=== PATIENT | female | born 1980 | race Hispanic/Latino ===

== ENCOUNTER 2025-03-03 18:53 | Emergency (ER) | payer SELFPAY ==
[~2025-03-03] VITALS: Ht 154.9 cm; Wt 82.6 kg
[2025-03-03 19:17] LABS: BASOPHILS # (AUTO) 0.05 K/uL (0.00-0.20); BASOPHILS % (AUTO) 0.7 % (0.0-5.0); EOSINOPHILS # (AUTO) 0.18 K/uL (0.00-0.70); EOSINOPHILS % (AUTO) 2.5 % (0.0-8.0); HEMATOCRIT 31.9 % (36-48); IMMATURE GRANULOCYTE ABSOLUTE 0.02 K/uL (0-1); LYMPHOCYTES # (AUTO) 1.6 K/uL (1.0-4.8); LYMPHOCYTES % (AUTO) 22.4 % (21.0-51.0); MEAN CORPUSCULAR HEMOGLOBIN 19.3 pg (27.0-33.0); MEAN CORPUSCULAR HGB CONC 29.2 g/dL (32.0-36.0); MONOCYTES # (AUTO) 0.5 K/uL (0.1-1.0); MONOCYTES % (AUTO) 7.2 % (3.0-13.0); NEUTROPHILS # (AUTO) 4.8 K/uL (1.8-7.7); NEUTROPHILS % (AUTO) 66.9 % (40.0-77.0); PLATELET COUNT (AUTO) 410 K/uL (130-400); RED BLOOD CELL COUNT(AUTO) 4.83 MIL/uL (4.00-5.50); RED CELL DISTRIBUTION WIDTH 18.3 % (11.0-15.5); WHITE BLOOD COUNT (AUTO) 7.1 K/uL (4.8-10.8)
[2025-03-03 19:38] LABS: CREATININE 0.8 mg/dL (0.5-1.0); POTASSIUM 3.5 mmol/L (3.5-5.1)
[2025-03-03 19:42] LABS: ALBUMIN 3.8 g/dL (3.5-5.0); BILIRUBIN,DIRECT 0.1 mg/dL (0.0-0.3); BILIRUBIN,TOTAL 0.5 mg/dL (0.2-1.0); TOTAL PROTEIN, SERUM 7.3 g/dL (6.0-8.3)
--- NOTE | 2025-03-03 19:50 | ERN ---
ED Note History of Present Illness Stated Complaint: ABD PAIN Chief Complaint: Abdominal Pain Time Seen by MD: 18:55 Time Seen by Midlevel: 18:59 Dictation: 44-year-old female coming in with complaints of diarrhea, nausea and epigastric pain for the last couple of days. Patient states her sister were diagnosed with H pylori and wants to have the exam done. Patient denies having any medical history. Surgical history of cholecystectomy. LMP is 02/02/25 Allergies: Coded Allergies: No Known Drug Allergies (Unverified Allergy, Unknown, 03/03/25) Past Medical History Past Medical History: No Pertinent History Surgical History: None Review of System Dictation Constitutional: Negative for fever,chills, and weight loss Eyes: Negative for injury, pain,redness, and discharge ENT: Negative for injury,pain or swelling Cardiovascular: Negative for chest pain, palpitations, and edema Respiratory: Negative for shortness of breath, cough, and wheezing, Abdomen/GI: Complaining of epigastric pain, nausea, vomiting and diarrhea, nonbloody Back: Negative for injury and pain : Negative for injury, bleeding and discharge MS/Extremity: Negative for injury and deformity Skin: Negative for rash, and discoloration Neuro: Negative for headache, weakness, numbness, tingling, and seizure Psych: Negative for suicide ideation, homicidal ideation, and hallucinations Review of Systems: was completed Initial Vital Sign VS Vital Signs Date Time Temp Pulse Resp B/P (MAP) Pulse Ox O2 Delivery O2 Flow Rate FiO2 03/03/25 18:55 98.1 89 18 184/117 98 Physical Exam Dictation General: awake, alert, NAD Head/Face: Normocephalic, atraumatic Eyes: PERRL, EOMI, vision at baseline ENT: oral cavity clear, TMs clear, no signs of infection Neck: Trachea midline, supple, no nuchal rigidity Cardiovascular: RRR, normal S1/S2, No MRGs, no JVD Respiratory: CTAB, no respiratory distress, No rales or wheezes Abdomen: Soft, non-tender, non-distended, normal bowel sounds, no guarding or rebound. Skin: Warm, dry, normal turgor, no rash MS/Extremity: Pulses equal, no cyanosis, neurovascular intact, FROM Neuro: COAx4, GCS 15, strength 5/5, CN 2-12 intact, normal cerebellar exam, normal gait, Psych: Normal behavior, mood, and affect normal Results (Laboratory/Radiology) Laboratory/Radiology Laboratory Tests Test 03/03/25 19:06 White Blood Count 7.1 K/uL (4.8-10.8) Red Blood Count 4.83 MIL/uL (4.00-5.50) Hemoglobin 9.3 g/dL (12.0-16.0) L Hematocrit 31.9 % (36-48) L Mean Corpuscular Volume 66.0 fL (79-99) L Mean Corpuscular Hemoglobin 19.3 pg (27.0-33.0) L Mean Corpuscular Hemoglobin Concent 29.2 g/dL (32.0-36.0) L Red Cell Distribution Width 18.3 % (11.0-15.5) H Platelet Count 410 K/uL (130-400) H Mean Platelet Volume 10.5 fL (7.5-10.5) Immature Granulocyte % (Auto) 0.3 % (0-1) Neutrophils (%) (Auto) 66.9 % (40.0-77.0) Lymphocytes (%) (Auto) 22.4 % (21.0-51.0) Monocytes (%) (Auto) 7.2 % (3.0-13.0) Eosinophils (%) (Auto) 2.5 % (0.0-8.0) Basophils (%) (Auto) 0.7 % (0.0-5.0) Neutrophils # (Auto) 4.8 K/uL (1.8-7.7) Lymphocytes # (Auto) 1.6 K/uL (1.0-4.8) Monocytes # (Auto) 0.5 K/uL (0.1-1.0) Eosinophils # (Auto) 0.18 K/uL (0.00-0.70) Basophils # (Auto) 0.05 K/uL (0.00-0.20) Absolute Immature Granulocyte (auto 0.02 K/uL (0-1) Nucleated Red Blood Cells 0.0 % (0.0-0.19) Red Blood Cell Morphology See comments Sodium Level 141 mmol/L (136-145) Potassium Level 3.5 mmol/L (3.5-5.1) Chloride Level 106 mmol/L (101-111) Carbon Dioxide Level 27 mmol/L (21-32) Blood Urea Nitrogen 11 mg/dL (7-18) Creatinine 0.8 mg/dL (0.5-1.0) Glomerular Filtration Rate Calc 93 mL/min (>90) Random Glucose 109 mg/dL (70-105) H Total Calcium 8.7 mg/dL (8.5-10.1) Total Bilirubin 0.5 mg/dL (0.2-1.0) Direct Bilirubin 0.1 mg/dL (0.0-0.3) Aspartate Amino Transf (AST/SGOT) 30 U/L (10-37) Alanine Aminotransferase (ALT/SGPT) 35 U/L (12-78) Alkaline Phosphatase 110 U/L (50-136) Total Protein 7.3 g/dL (6.0-8.3) Albumin 3.8 g/dL (3.5-5.0) Lipase 58 U/L (16-77) Labs Reviewed?: Yes ED Course ED Course Orders Procedure Category Date Status Time Cbc With Differential LAB 03/03/25 Complete 19:02 Basic Metabolic Panel LAB 03/03/25 Complete 19:02 Lipase LAB 03/03/25 Complete 19:02 Hepatic Function Panel LAB 03/03/25 Complete 19:02 0.9%Nacl 1000ml (Ns PHA 03/03/25 In Process 1000ml) 19:02 Ondansetron 4mg Inj PHA 03/03/25 Complete (Zofran 4mg Inj) 19:30 Famotidine 20mg Vial PHA 03/03/25 Complete (Pepcid 20mg Vial) 19:02 Current Medications Medications (Trade) Dose Ordered Sig/Larry Route PRN Reason Start Time Stop Time Status Last Admin Dose Admin Famotidine (Pepcid 20mg Vial) 20 mg ONCE STAT IV 03/03/25 19:02 03/03/25 19:06 DC Ondansetron HCl (zoFRAN 4MG INJ) 4 mg ONCE ONCE IVP 03/03/25 19:30 03/03/25 19:31 DC Sodium Chloride 1,000 ml @ 1,000 mls/hr Q1H STAT IV 03/03/25 19:02 03/03/25 20:01 Vital Signs Date Time Temp Pulse Resp B/P (MAP) Pulse Ox O2 Delivery O2 Flow Rate FiO2 03/03/25 18:55 98.1 89 18 184/117 98 Medical Decision Making MDM MDM: 44-year-old female coming in with complaints of diarrhea, nausea and epigastric pain for the last couple of days. Patient states her sister were diagnosed with H pylori and wants to have the exam done. Patient denies having any medical history. Surgical history of cholecystectomy. LMP is 02/02/25. Unremarkable. No leukocytosis, no anemia. No transaminitis and lipase within normal range. Discussed findings with the patient. Discussed more likely she has gastroenteritis or she could potentially have H pylori when she needs to follow up outpatient with PCP. Patient verbalized understanding, answered all questions. Differential diagnosis: Gastroenteritis, pancreatitis, Rationale: Tests considered and ordered secondary to shared decision making include: Previous outside records reviewed: Old ER visits. Risk of complication and/or morbidity or mortality of patient management: None Medications-Per medication reconciliation Need for hospitalization: Patient does not meet criteria for hospitalization. Need for emergency major/minor surgery: No There are no social concerns with this patient. Prescription drug management Prescriptions will include symptomatic care Patient's prior external medical records from other ER visits were reviewed by me as indicated. Prior testing and results from previous visits were reviewed. Prior tests were taken into account with medical decision making and resource utilization, independent historian/historians were used to obtain complete medical history. I independently interpreted the test that were performed, results were reviewed by me and considered findings on radiology if ordered. Medical management and examination interpretation discussions were had by me with other qualified healthcare professionals as indicated for the patient's care. DX & DISP Disposition: Discharge Departure Impression: Primary Impression: Gastroenteritis Condition: Stable Scripts Ondansetron (Ondansetron Odt) 4 Mg Tab.rapdis 1 TAB PO Q6HPRN PRN for nausea/vomiting for 3 Days, #12 TAB 0 Refills Prov: MEGAN MARTE MEDICAL ADMINISTRATIVE SPECIALIST 03/03/25 Additional Instructions: Stay hydrated, take antiemetic. Follow up with PCP. Return to the hospital if symptoms worsen. Referrals: SELF,REFERRAL (PCP) Time of Disposition: 19:59 I have reviewed the case, and I agree with, Diagnosis and Plan MEGAN MARTE MEDICAL ADMINISTRATIVE SPECIALIST Mar 03, 2025 19:50
[2025-03-03] MEDS ORDERED: ONDA-243 PO (19:59)
[2025-03-03] MEDS: 0.9%NACL 1000ML 1,000 ML IV STA (20:30)
[2025-03-03] MEDS: FAMOTIDINE 20MG VIAL IV STA (20:30)
[2025-03-03] MEDS: ondanSETRON 4MG INJ IVP ONE (20:30)
[2025-03-03 21:33] VITALS: BP 131/65; PULSE 81; RESP 15; TEMP 98.4; O2SAT 100
== END 2025-03-03 21:34 | disposition home or self-care (01) ==
LOC: EDH 18:53
DX: K52.9 Noninfective gastroenteritis and colitis, unspecified (principal)
CPT/HCPCS: 36415; 80048; 80076; 83690; 85025; 96374; 96375; 99284; J2405; J3490